=== PATIENT | female | born 1950 | race Caucasian/White ===

== ENCOUNTER 2017-10-08 13:00 | Emergency (ER) | payer MEDICARE, MEDICAID ==
[~2017-10-08] VITALS: Ht 160 cm; Wt 68.2 kg
[~2017-10-08 13:00] MED LIST: AMBIEN5 MG PO; ASPIRIN 32325 MG/TAB PO; BISMUTH SUBSALICYLATE; BUPROPION XL150 MG PO; CHANTIX0.5 MG PO; CLONAZEPAM PO; DEPAKENE; DEPAKOTE; DEPAKOTE ER 50500 MG PO; GEODON60 MG PO; KLONOPIN 1MG1 MG PO; LEVOTHYROXINE PO; LEVOXYL0.1 MG PO; NORCO 325 MG-51 TAB PO; PENICILLIN V500 MG PO; PERPHENAZINE8 MG PO; PREDNISONE 20MG20 MG PO; PREDNISONE20 MG PO; PREMARIN 0.60.625 M1 PO; PREMARIN0.625 MG PO; SYNTHROID PO; TENORMIN 5050 MG/TAB PO; TYLENOL 325MG325 MG PO; UNABLE; WELLBUTRIN PO; XOPENEX1.25 MG/0. IH; ZIPRASIDONE; ZITHROMAX 250M250 MG PO; ZITHROMAX Z PA250 MG PO; ZITHROMAX Z-PA250 M1 PO; ZOLPIDEM10 MG PO; [UNRECOGNIZED DRUG - OTHER]; [UNRECOGNIZED DRUG - REMARK]; hormone; pain reliever
[2017-10-08 13:41] LABS: BASO % 0.2 % (0.0-2.0); EOS % 0.2 % (0-4.0); GRAN % 76.5 % (42.2-75.2); HEMOGLOBIN 13.9 g/dl (12.5-16.0); LYMPH # 1.7 (1.2-3.4); LYMPH % 13.1 % (20.0-51.0); MEAN CELL VOLUME 89 fl (80.0-100.0); MEAN CORPUSCULAR HEMOGLOBIN 30 pg (27.0-31.0); MEAN CORPUSCULAR HGB CONC 34 g/dl (33.0-37.0); MONO # 1.2 (0.1-0.6); MONO % 9.5 % (1.7-9.3); PLATELET COUNT 300 K/mm3 (130-400); RED BLOOD COUNT 4.63 M/mm3 (4.10-5.30); REDCELL DISTRIBUTION WIDTH-CV 12.8 % (11.5-14.5)
[2017-10-08 13:48] LABS: ALANINE AMINOTRANSFERASE 29 U/L (9-52); ALKALINE PHOSPHATASE 164 U/L (50-136); ANION GAP 10 mmol/L (7-16); AST,SGOT 18 U/L (15-37); BILIRUBIN,TOTAL 0.3 mg/dL (0.0-1.0); BLOOD UREA NITROGEN 19 mg/dL (7-17); CALCIUM 9.3 mg/dL (8.4-10.2); CARBON DIOXIDE 32 mmol/L (22-30); CREATININE, serum 0.58 mg/dL (0.52-1.25); GLUCOSE 133 mg/dL (74-106); POTASSIUM 4.5 mmol/L (3.4-5.0); SODIUM 127 mmol/L (137-145); TOTAL PROTEIN 7.6 gm/dL (6.4-8.2)
[2017-10-08 13:50] LABS: ACETAMINOPHEN < 10 ug/mL (10-30); ALCOHOL(ethanol),MEDICAL < 10 mg/dL; CHLORIDE 85 mmol/L (98-107); SALICYLATE < 1.0 mg/dL
[2017-10-08 15:14] LABS: COLLECTION METHOD CLEAN CATCH
[2017-10-08 15:19] LABS: PH 8 (5-8); SQUAMOUS EPITHELIAL None Seen /hpf; URINE APPEARANCE Clear; URINE BACTERIA None Seen /hpf; URINE BILIRUBIN Negative (NEGATIVE); URINE BLOOD Negative (NEGATIVE); URINE COLOR Straw; URINE GLUCOSE Negative (NEGATIVE); URINE KETONE Negative (NEGATIVE); URINE LEUKOCYTE ESTERASE Negative (NEGATIVE); URINE NITRATE Negative (NEGATIVE); URINE PROTEIN(semi-quant) Negative (NEGATIVE); URINE RBC 0-2 /hpf; URINE UROBILINOGEN Negative (NEGATIVE)
[2017-10-08] MEDS ORDERED: RISPERDAL4 MG PO (15:24)
[2017-10-08] MEDS ORDERED: SEROQUEL50 MG PO (15:24)
[2017-10-08] MEDS ORDERED: MELAT3MGTAB (15:24)
[2017-10-08 16:29] LABS: TRICYCLIC ANTIDEPRESS URINE NEGATIVE
[2017-10-09] MEDS ORDERED: ZYRTEC 10MG10 MG PO (06:25)
[2017-10-09] MEDS ORDERED: PROLIX5TA PO (06:26)
[2017-10-09 12:30] VITALS: TEMP 98.9
[2017-10-09 13:17] LABS: CALCIUM 8.8 mg/dL (8.4-10.2); CREATININE, serum 0.72 mg/dL (0.52-1.25); POTASSIUM 4.4 mmol/L (3.4-5.0)
[2017-10-09 19:30] VITALS: BP 135/77; PULSE 91
== END 2017-10-09 19:00 ==
LOC: COL.ER 13:00
PROVIDERS: Physician Assistant
DX: F22 Delusional disorders (principal); J44.9 Chronic obstructive pulmonary disease, unspecified; E03.9 Hypothyroidism, unspecified; I10 Essential (primary) hypertension; F25.9 Schizoaffective disorder, unspecified; Z90.710 Acquired absence of both cervix and uterus
CPT/HCPCS: J2060